=== PATIENT | male | born 1965 | race Hispanic/Latino ===

== ENCOUNTER 2022-10-03 07:21 | Observation (INO) | payer BC ==
[2022-10-02 09:18] LABS: BASOPHILS % 0.6 % (0.0-1.0); EOSINOPHILS # (AUTO) 0.2 (0.0-0.4); EOSINOPHILS % 2.9 % (0.0-6.0); HEMATOCRIT 41.5 % (38.2-49.6); HEMOGLOBIN 13.7 g/dL (14.0-18.0); LYMPHOCYTES # (AUTO) 1.7 (1.0-3.2); LYMPHOCYTES % 27.6 % (18.0-39.1); MEAN CORPUSCULAR HEMOGLOBIN 29.3 pg (28-32); MEAN CORPUSCULAR VOLUME 88.7 fL (81-99); MONOCYTES # (AUTO) 0.5 (0.2-0.8); MONOCYTES % 7.5 % (4.4-11.3); NEUTROPHILS # (AUTO) 3.8 (2.1-6.9); NEUTROPHILS % 61.2 % (38.7-80.0); PLATELET COUNT 281 x10e3/uL (140-360); RED BLOOD COUNT 4.68 x10e6/uL (4.3-5.7); RED CELL DISTRIBUTION WIDTH 12.3 % (11.7-14.4)
[2022-10-02 09:43] LABS: ANION GAP 15.1 mmol/L (8-16); CREATININE, SERUM 0.81 mg/dL (0.72-1.25); POTASSIUM 4.1 mmol/L (3.5-5.1)
[~2022-10-03 07:21] MED LIST: B12; FISH OIL 1,0001 EAC7; GLIPIZIDE5 MG PO; JARDIANCE10 MG; LISINOPRIL10 MG PO; METFORMIN HCL850 MG PO; OZEMPIC0.25 MG/0. SC; ROPIVACAINE 246.25 MG, EPINEPHRINE HCL 1:1000 1ML 0.5 MG, CLONIDINE HCL 0.08 MG, KETORO... INJ ONE; SIMVASTATIN40 MG PO; VITAMIN D31 GM
[2022-10-03] MEDS ORDERED: GABAPENTIN 300 MG CAP ONE (09:10)
[2022-10-03] MEDS ORDERED: DEXAMETHASONE SOD PHOS 10 MG/1 ML VIAL ONE (09:10)
[2022-10-03] MEDS ORDERED: CELECOXIB 200 MG CAP ONE (09:10)
[2022-10-03] MEDS ORDERED: CEFAZOLIN SODIUM 2 GM ONE (09:11)
[2022-10-03] MEDS ORDERED: LACTATED RINGER'S 1,000 ML ONE (09:11)
[2022-10-03] MEDS ORDERED: Vancomycin IV 1,000 MG ONE (09:34)
[2022-10-03] MEDS ORDERED: SODIUM CHLORIDE 0.9% 500ML 500 ML ONE (09:34)
[2022-10-03] MEDS ORDERED: TRANEXAMIC ACID 20 ML ONE (09:34)
[2022-10-03] MEDS ORDERED: KETAMINE 50MG/5ML SYR ONE (10:30)
[2022-10-03] MEDS ORDERED: HYDROMORPHONE 1MG/1ML INJ ONE (10:30)
[2022-10-03] MEDS ORDERED: HYDROCODONE/APAP 5MG-325MG TAB PO PRN (11:45)
[2022-10-03] MEDS ORDERED: ONDANSETRON HCL INJ 2MG/ML 2ML 2 MG/ML VIAL IV PRN (11:45)
[2022-10-03] MEDS ORDERED: SODIUM CHLORIDE 0.9% 1000ML 1,000 ML IV SCH (11:45)
[2022-10-03] MEDS ORDERED: DOCUSATE SODIUM 100 MG CAP PO PRN (11:45)
[2022-10-03] MEDS ORDERED: HYDROCODONE/APAP 7.5MG-325MG 1 EA TAB PO PRN (11:45)
[2022-10-03] MEDS ORDERED: DIPHENHYDRAMINE HCL INJ 50 MG/ML VIAL IV PRN (11:45)
[2022-10-03] MEDS: FENTANYL CITRATE/PF 100MCG/2 ML INJ ONE ×4 (12:07→12:22)
[2022-10-03] MEDS: MEPERIDINE HCL INJ 25 MG/ML VIAL ONE ×2 (12:10→12:20)
[2022-10-03] MEDS ORDERED: POVIDONE IODINE 0.05% 0.05 % ML PO ONE (12:55)
[2022-10-03] MEDS ORDERED: PROPOFOL IV EMULSION 10 MG/ML 20 ML VIAL ONE (12:55)
[2022-10-03] MEDS ORDERED: ONDANSETRON HCL INJ 2MG/ML 2ML 2 MG/ML VIAL ONE (12:55)
[2022-10-03] MEDS ORDERED: SEVOFLURANE INHAL SOLN 250 ML PEN BTL ONE (12:55)
[2022-10-03] MEDS ORDERED: LIDOCAINE HCL 2% LOCAL INJ 5 ML SDV VIAL INJ ONE (12:55)
[2022-10-03] MEDS ORDERED: HYDROCODONE/APAP 10MG-325MG TAB ONE (13:13)
[2022-10-03] MEDS ORDERED: LISINOPRIL 20 MG TAB PO ONE (14:00)
[2022-10-03 16:15] VITALS: BP 159/92; PULSE 71; RESP 18; O2SAT 96
[2022-10-03] MEDS ORDERED: ASPIRIN81 MG PO (16:38)
[2022-10-03] MEDS ORDERED: CELECOXIB 100 MG CAP PO SCH (17:00)
[2022-10-03] MEDS ORDERED: ASPIRIN 325 MG TAB PO SCH (17:00)
[2022-10-04] MEDS ORDERED: ACETAMINOPHEN 1000 MG/100 ML IV PRN (11:45)
== END 2022-10-03 16:35 | disposition home health service (06) ==
LOC: OR 07:21 → PACU V 11:37
PROVIDERS: ADMIT Specialist; ATTEND Specialist
DX: M17.11 Unilateral primary osteoarthritis, right knee (principal); I10 Essential (primary) hypertension; E11.9 Type 2 diabetes mellitus without complications; Z79.84 Long term (current) use of oral hypoglycemic drugs; Z01.810 Encounter for preprocedural cardiovascular examination; Z01.812 Encounter for preprocedural laboratory examination; Z87.891 Personal history of nicotine dependence; Z79.899 Other long term (current) drug therapy
CPT/HCPCS: 27447; 36415 ×2; 73560; 80048; 82948; 85025; 86850; 86900; 86920; 93005; 97110; 97116 ×2; 97162; 97530; C1713 ×2; C1776 ×3; G0378; J0171; J0690; J1100; J1170; J1885; J2001; J2175; J2405; J2704; J2795; J3010; J3370; J7040; J7121